=== PATIENT | female | born 1980 | race Caucasian/White ===

== ENCOUNTER 2021-05-27 08:53 | Observation (INO) | payer BC, OTHER ==
[~2021-05-27 08:53] MED LIST: Dexamethasone 4 MG/ML 5 ML MDV ONE; Ketorolac 30 MG/ML SDV ONE; Lactated Ringers 1,000 ML IV SCH; Lidocaine 1% 4 ML ONE; Lidocaine 1%/Sod Bicarbonate in NS 8.4% 1 ML Syringe IDERM PRN; Midazolam 1 MG/ML 2 ML SDV ONE; Ondansetron 4 MG/2 ML SDV ONE; Propofol 200 MG/20 ML SDV ONE; Rocuronium 50 MG/5 ML Vial ONE; Scopolamine 1.5 MG Transdermal Patch TRDERM PRN; Sodium Chloride 0.9% 10 ML Syringe FLUSH PRN; fentaNYL 250 MCG/5 ML SDV ONE
[2021-05-27] MEDS ORDERED: Scopolamine 1.5 MG Transdermal Patch TRDERM ONE (09:19)
[2021-05-27] MEDS ORDERED: diphenhydrAMINE 50 MG/ML SDV IVPUSH PRN (09:19)
[2021-05-27] MEDS ORDERED: Ondansetron 4 MG/2 ML SDV IVPUSH PRN (09:19)
[2021-05-27] MEDS ORDERED: fentaNYL 100 MCG/2 ML SDV IVPUSH PRN (09:20)
[2021-05-27] MEDS ORDERED: HYDROmorphone 0.5 MG/0.5 ML Syringe IVPUSH PRN (09:20)
--- NOTE | 2021-05-27 09:28 | PCM.PREANE ---
Preanesthetic Assessment - Procedure Proposed Procedure: Laparscopic Hiatal hernia repair - Anesthesia/Transfusion/Family Hx Anesthesia History: Prior Anesthesia Reaction Type of Anesthesia Reaction: Excessive Nausea/Vomiting Family History of Anesthesia Reaction: No Transfusion History: No Prior Transfusion(s) Intubation History: Unknown - Review of Systems General: No Symptoms Pulmonary: No Symptoms (history of bronchitis - does not use albuterol inhaler regularly only once a year ) Cardiovascular: No Symptoms Gastrointestinal: Other (GERD history when no on medicaitons ) Neurological: No Symptoms Other: Reports: None, Depression, Anxiety - Physical Assessment NPO Status Date: 05/26/21 NPO Status Time: 20:30 Height: 1.5 m Weight: 21.137 kg ASA Class: 2 Mental Status: Alert & Oriented x3 Airway Class: Mallampati = 1 Dentition: Reports: Dentures Thyro-Mental Finger Breadths: 3 Mouth Opening Finger Breadths: 5 ROM/Head Extension: Full Lungs: Clear to Auscultation, Normal Respiratory Effort Cardiovascular: Regular Rate, Regular Rhythm - Lab Values: Laboratory Last Values Urine HCG, Qual Negative (NEGATIVE) 05/27/21 08:53 - Allergies Allergies/Adverse Reactions: Allergies Allergy/AdvReac Type Severity Reaction Status Date / Time No Known Allergies Allergy Verified 05/24/21 08:42 - Blood Blood Available: No - Anesthesia Plan Pre-Op Medication Ordered: None - Acknowledgements Anesthesia Type Planned: General Anesthesia Pt an Appropriate Candidate for the Planned Anesthesia: Yes Alternatives and Risks of Anesthesia Discussed w Pt/Guardian: Yes Pt/Guardian Understands and Agrees with Anesthesia Plan: Yes PreAnesthesia Questionnaire - Past Health History Medical/Surgical History: Denies Medical/Surgical History Other HEENT History: wears eyeglasses, has upper/lower dentures. Gastrointestinal History: Reports: Colon Polyp, Gastritis, Helicobacter Pylori, Hiatal Hernia Psychiatric History: Reports: Eating Disorders - Past Surgical History HEENT Surgical History: Reports: Naso-Sinus Surgery GI Surgical History: Reports: Colonoscopy, EGD - SUBSTANCE USE Tobacco Use Status *Q: Former Tobacco User Recreational Drug Use History: No - HOME MEDS Home Medications: Home Meds Albuterol [Ventolin HFA] 1 puff INH ASDIRECTED PRN 05/24/21 [History] Famotidine [Pepcid] 20 mg PO BEDTIME 05/24/21 [History] Inulin/Chromium Picolinate [Fiber Gummies] 1 tab PO DAILY 05/24/21 [History] L.acidoph,Paracasei, B.lactis [Probiotic] 2 cap PO DAILY 05/24/21 [History] Omeprazole Magnesium [Prilosec Otc] 40 mg PO DAILY 05/24/21 [History] Sucralfate [Carafate] 1 gm PO QID 05/24/21 [History] polyethylene glycoL 3350 [MiraLAX] 17 gm PO ASDIRECTED PRN 05/24/21 [History] - CURRENT (IN HOUSE) MEDS Current Meds: Current Medications Diphenhydramine HCl (Diphenhydramine 50 Mg/Ml Sdv) 25 mg IVPUSH Q6H PRN PRN Reason: pruritis Fentanyl (Fentanyl 100 Mcg/2 Ml Sdv) 50 mcg IVPUSH Q5M PRN PRN Reason: Pain Hydromorphone HCl (Hydromorphone 0.5 Mg/0.5 Ml Syringe) 0.5 mg IVPUSH Q10M PRN PRN Reason: Pain (severe 7-10) Lactated Ringer's (Ringers, Lactated) 1,000 mls @ 125 mls/hr IV ASDIRECTED COCO Stop: 05/27/21 23:00 Lidocaine/Sodium Bicarbonate (Lidocaine 1%/Sod Bicarbonate In Ns 8.4% 1 Ml Syringe) 0.25 ml IDERM ONETIME PRN PRN Reason: Prior to IV Start Stop: 05/27/21 18:00 Ondansetron HCl (Ondansetron 4 Mg/2 Ml Sdv) 4 mg IVPUSH ONETIME PRN PRN Reason: Nausea/Vomiting Scopolamine (Scopolamine 1.5 Mg Transdermal Patch) 1.5 mg TRDERM Q72H PRN PRN Reason: Nausea Stop: 05/27/21 23:00 Scopolamine (Scopolamine 1.5 Mg Transdermal Patch) 1.5 mg TRDERM ONETIME ONE Stop: 05/27/21 09:20 Sodium Chloride (Sodium Chloride 0.9% 10 Ml Syringe) 10 ml FLUSH ASDIRECTED PRN PRN Reason: Keep Vein Open Stop: 05/27/21 18:00 Discontinued Medications Dexamethasone (Dexamethasone 4 Mg/Ml 5 Ml Mdv) Confirm Administered Dose 20 mg .ROUTE .STK-MED ONE Stop: 05/27/21 08:02 Fentanyl (Fentanyl 250 Mcg/5 Ml Sdv) Confirm Administered Dose 250 mcg .ROUTE .STK-MED ONE Stop: 05/27/21 08:03 Lidocaine HCl (Xylocaine-Mpf 1%) Confirm Administered Dose 4 mls @ as directed .ROUTE .[facility]-MED ONE Stop: 05/27/21 08:02 Ketorolac Tromethamine (Ketorolac 30 Mg/Ml Sdv) Confirm Administered Dose 30 mg .ROUTE .[facility] [place]-MED ONE Stop: 05/27/21 08:02 Midazolam HCl (Midazolam 1 Mg/Ml 2 Ml Sdv) Confirm Administered Dose 2 mg .ROUTE .[facility] [place]-MED ONE Stop: 05/27/21 07:59 Ondansetron HCl (Ondansetron 4 Mg/2 Ml Sdv) Confirm Administered Dose 4 mg .ROUTE .[facility] [place]-MED ONE Stop: 05/27/21 08:00 Propofol (Propofol 200 Mg/20 Ml Sdv) Confirm Administered Dose 200 mg .ROUTE .[facility] [place]-MED ONE Stop: 05/27/21 07:59 Rocuronium [place] (Rocuronium 50 Mg/5 Ml Vial) Confirm Administered Dose 50 mg .ROUTE .[facility]-MED ONE Stop: 05/27/21 08:02
[2021-05-27] MEDS ORDERED: ceFAZolin 1 GM Vial ONE ×3 (10:25→14:16)
[2021-05-27] MEDS: Bupivacaine 0.5%/EPINEPHrine 1:200,000 50 ML MDV ONE ×2 (10:43→11:05)
[2021-05-27] MEDS ORDERED: HYDROmorphone 0.5 MG/0.5 ML Syringe ONE ×3 (11:19→14:08)
[2021-05-27] MEDS ORDERED: Rocuronium 50 MG/5 ML Vial ONE (11:20)
[2021-05-27] MEDS ORDERED: Ketamine 500 mg/10 ML MDV ONE (11:36)
[2021-05-27] MEDS ORDERED: Lactated Ringers 1,000 ML ONE ×3 (13:08→15:04)
[2021-05-27] MEDS ORDERED: Ondansetron 4 MG/2 ML SDV ONE (14:18)
[2021-05-27] MEDS ORDERED: Glycopyrrolate 0.2 MG/ML SDV ONE ×2 (15:54)
[2021-05-27] MEDS ORDERED: Ketorolac 30 MG/ML SDV IM PRN (16:39)
[2021-05-27] MEDS ORDERED: Ondansetron 4 MG/2 ML SDV IV PRN (16:39)
--- NOTE | 2021-05-27 16:40 | PCM.POSTAN ---
POST ANESTHESIA ASSESSMENT - MENTAL STATUS Mental Status: Somnolent - VITAL SIGNS Vital Signs: Last Vital Signs Temp 97.9 F 05/27/21 09:00 Pulse 82 05/27/21 09:00 Resp 16 05/27/21 09:00 BP 120/80 05/27/21 09:00 Pulse Ox 100 05/27/21 09:00 1627 122/81 92 96% 9 97.2 - RESPIRATORY Respiratory Status: Respiratory Rate WNL, Airway Patent, O2 Saturation Stable, Supplemental Oxygen - CARDIOVASCULAR CV Status: Pulse Rate WNL, Blood Pressure Stable - GASTROINTESTINAL GI Status: No Symptoms - PAIN Pain Score: 0 (asleep) - POST OP HYDRATION Hydration Status: Adequate & Stable
[2021-05-27] MEDS ORDERED: Piperacillin/Tazobactam 4.5 GM in Sodium Chloride 0.9% 100 ML IV ONE (17:00)
[2021-05-27] MEDS: Lactated Ringers 1,000 ML IV SCH (18:39)
[2021-05-27] MEDS: Potassium Chloride 10 MEQ in Premix Bag 1 BAG IV SCH (18:55)
[2021-05-27] MEDS ORDERED: Fluconazole/Normal Saline 200 MG in Premix Bag 1 BAG IV SCH (19:00)
[2021-05-27] MEDS: Pantoprazole 40 MG Vial IV SCH (20:09)
[2021-05-27] MEDS: HYDROmorphone 0.5 MG/0.5 ML Syringe IVPUSH PRN (20:25)
[2021-05-28] MEDS: Piperacillin/Tazobactam 4.5 GM in Sodium Chloride 0.9% 100 ML IV SCH ×2 (00:52→09:05)
[2021-05-28] MEDS: HYDROmorphone 0.5 MG/0.5 ML Syringe IVPUSH PRN ×2 (00:56→09:05)
[2021-05-28] MEDS: Lactated Ringers 1,000 ML IV SCH ×3 (01:10→18:32)
[2021-05-28] MEDS ORDERED: Ketorolac 15 MG/ML SDV IVPUSH PRN (07:29)
--- NOTE | 2021-05-28 07:35 | PCM48HPAN ---
Post Anesthesia Note - EVALUATION WITHIN 48HRS OF ANESTHETIC Vital Signs in Normal Range: Yes Patient Participated in Evaluation: Yes Respiratory Function Stable: Yes Airway Patent: Yes Cardiovascular Function Stable: Yes Hydration Status Stable: Yes Pain Control Satisfactory: Yes Nausea and Vomiting Control Satisfactory: Yes Mental Status Recovered: Yes Vital Signs: Last Vital Signs Temp 36.7 C 05/28/21 04:54 Pulse 66 05/28/21 04:54 Resp 16 05/28/21 04:54 BP 109/70 05/28/21 04:54 Pulse Ox 100 05/28/21 06:20 - COMMENTS/OBSERVATIONS Free Text/Narrative:: no anesthesia complications noted
[2021-05-28] MEDS ORDERED: Ketorolac 15 MG/ML SDV IVPUSH SCH (08:00)
[2021-05-28] MEDS ORDERED: Magnesium Sulfate/Water 4 GM in Premix Bag 1 BAG IV ONE (09:00)
[2021-05-28] MEDS: Enoxaparin 30 MG/0.3 ML Syringe SUBCUT SCH (09:04)
[2021-05-28] MEDS: Pantoprazole 40 MG Vial IV SCH ×2 (09:05→21:57)
[2021-05-28] MEDS ORDERED: Barium Sulfate 60% w/v Susp 355 ML Bottle PO ONE (11:54)
[2021-05-28] MEDS ORDERED: Diatrizoate Meglumine/Diatrizoate Sodium 37% 120 ML Bottle PO ONE (11:54)
--- NOTE | 2021-05-28 12:10 | PCM.PN ---
- General Info Date of Service: 05/28/21 Admission Dx/Problem (Free Text): Hiatal hernia repair Subjective Update: still has pain, incisional but no other issues. tolerating ice chips Functional Status: Reports: Tolerating Diet, Ambulating, Urinating - Review of Systems General: Reports: No Symptoms HEENT: Reports: No Symptoms Pulmonary: Reports: No Symptoms Cardiovascular: Reports: No Symptoms Gastrointestinal: Reports: Abdominal Pain (due to surgery) Genitourinary: Reports: No Symptoms Musculoskeletal: Reports: No Symptoms Skin: Reports: No Symptoms - Patient Data Vitals - Most Recent: Last Vital Signs Temp 97.9 F 05/28/21 07:38 Pulse 85 05/28/21 07:38 Resp 20 05/28/21 07:38 BP 90/64 05/28/21 07:38 Pulse Ox 97 05/28/21 07:47 Weight - Most Recent: 46.539 kg I&O - Last 24 Hours: Intake & Output 05/27/21 05/28/21 05/28/21 22:59 06:59 14:59 Intake Total 520 1452 Output Total 100 Balance 520 1352 Lab Results Last 24 Hours: Laboratory Results - last 24 hr 05/27/21 05/28/21 05/28/21 Range/Units 16:45 04:58 04:58 WBC 15.19 H (3.98-10.04) K/mm3 RBC 3.80 L (3.98-5.22) M/mm3 Hgb 11.6 D (11.2-15.7) gm/dl Hct 34.6 (34.1-44.9) % MCV 91.1 (79.4-94.8) fl MCH 30.5 (25.6-32.2) pg MCHC 33.5 (32.2-35.5) g/dl RDW Std Deviation 43.6 (36.4-46.3) fL Plt Count 266 D (182-369) K/mm3 MPV 9.8 (9.4-12.3) fl Neut % (Auto) 82.1 H (34.0-71.1) % Lymph % (Auto) 10.8 L (19.3-51.7) % Guthrie % (Auto) 7.0 (4.7-12.5) % Eos % (Auto) 0 L (0.7-5.8) Baso % (Auto) 0.1 (0.1-1.2) % Neut # (Auto) 12.47 H (1.56-6.13) K/mm3 Lymph # (Auto) 1.64 (1.18-3.74) K/mm3 [place]rie # (Auto) 1.07 H (0.24-0.36) K/mm3 Eos # (Auto) 0.00 L (0.04-0.36) K/mm3 Baso # (Auto) 0.01 (0.01-0.08) K/mm3 Sodium 140 (136-145) mEq/L Potassium 5.0 D 3.9 (3.5-5.1) mEq/L Chloride 105 (98-107) mEq/L Carbon Dioxide 25 (21-32) mEq/L Anion Gap 13.9 (5-15) BUN 7 (7-18) mg/dL Creatinine 0.9 (0.55-1.02) mg/dL Est Cr Clr Drug Dosing 57.89 mL/min Estimated GFR (MDRD) > 60 (>60) mL/min BUN/Creatinine Ratio 7.8 L (14-18) Glucose 103 H (70-99) mg/dL Calcium 7.7 L (8.5-10.1) mg/dL Phosphorus 3.3 (2.6-4.7) mg/dL Magnesium 1.3 L (1.8-2.4) mg/dL Med Orders - Current: Current Medications Enoxaparin Sodium (Enoxaparin 30 Mg/0.3 Ml Syringe) 30 mg SUBCUT DAILY [facility] Last Admin: 05/28/21 09:04 Dose: 30 mg Documented by: Hydromorphone HCl (Hydromorphone 0.5 Mg/0.5 Ml Syringe) 0.5 mg IVPUSH Q2H PRN PRN Reason: Pain (severe 7-10) Last Admin: 05/28/21 09:05 Dose: 0.5 mg Documented by: Piperacillin Sod/Tazobactam (Sod 4.5 gm/ Sodium Chloride) 100 mls @ 25 mls/hr IV Q8H [facility] Last Admin: 05/28/21 09:05 Dose: 25 mls/hr Documented by: Fluconazole/Sodium Chloride (200 mg/ Premix) 100 mls @ 100 mls/hr IV Q24H [facility] Last Admin: 05/27/21 20:09 Dose: 100 mls/hr Documented by: Lactated Ringer's (Ringers, Lactated) 1,000 mls @ 125 mls/hr IV ASDIRECTED [facility] Last Admin: 05/28/21 09:07 Dose: 125 mls/hr Documented by: Magnesium Sulfate 4 gm/ Premix 50 mls @ 12.5 mls/hr IV ONETIME ONE Stop: 05/28/21 12:59 Last Admin: 05/28/21 09:04 Dose: 12.5 mls/hr Documented by: Ketorolac Tromethamine (Ketorolac 15 Mg/Ml Sdv) 15 mg IVPUSH Q6H PRN PRN Reason: Pain Last Admin: 05/28/21 11:37 Dose: 15 mg Documented by: Miscellaneous Information (Remove Patch) 0 ea TRDERM ONETIME ONE Stop: 05/30/21 09:01 Ondansetron HCl (Ondansetron 4 Mg/2 Ml Sdv) 4 mg IV Q4H PRN PRN Reason: Nausea/Vomiting Pantoprazole Sodium (Pantoprazole 40 Mg Vial) 40 mg IV Q12HR [facility] Last Admin: 05/28/21 09:05 Dose: 40 mg Documented by: Discontinued Medications Barium Sulfate (Barium Sulfate 60% W/V Susp 355 Ml Bottle) 355 ml PO PREPRO ONE Stop: 05/28/21 11:55 Bupivacaine HCl/Epinephrine Bitart (Bupivacaine 0.5%/Epinephrine 1:200,000 50 Ml Mdv) Confirm Administered Dose 50 ml .ROUTE .STK-MED ONE Stop: 05/27/21 09:38 Last Admin: 05/27/21 10:43 Dose: 40 ml Documented by: Cefazolin Sodium (Cefazolin 1 Gm Vial) Confirm Administered Dose 2 gm .ROUTE .STK-MED ONE Stop: 05/27/21 10:26 Cefazolin Sodium (Cefazolin 1 Gm Vial) Confirm Administered Dose 2 gm .ROUTE .STK-MED ONE Stop: 05/27/21 14:16 Cefazolin Sodium (Cefazolin 1 Gm Vial) Confirm Administered Dose 2 gm .ROUTE .STK-MED ONE Stop: 05/27/21 14:17 Dexamethasone (Dexamethasone 4 Mg/Ml 5 Ml Mdv) Confirm Administered Dose 20 mg .ROUTE .STK-MED ONE Stop: 05/27/21 08:02 Diatrizoate Meglum/Diatrizoate Sod (Diatrizoate Meglumine/Diatrizoate Sodium 37% 120 Ml Bottle) 360 ml PO ONETIME ONE Stop: 05/28/21 11:55 Diphenhydramine HCl (Diphenhydramine 50 Mg/Ml Sdv) 25 mg IVPUSH Q6H PRN PRN Reason: pruritis Stop: 05/27/21 18:00 Fentanyl (Fentanyl 250 Mcg/5 Ml Sdv) Confirm Administered Dose 250 mcg .ROUTE .STK-MED ONE Stop: 05/27/21 08:03 Fentanyl (Fentanyl 100 Mcg/2 Ml Sdv) 50 mcg IVPUSH Q5M PRN PRN Reason: Pain Stop: 05/27/21 18:00 Glycopyrrolate (Glycopyrrolate 0.2 Mg/Ml Sdv) Confirm Administered Dose 0.2 mg .ROUTE .STK-MED ONE Stop: 05/27/21 15:55 Glycopyrrolate (Glycopyrrolate 0.2 Mg/Ml Sdv) Confirm Administered Dose 0.2 mg .ROUTE .STK-MED ONE Stop: 05/27/21 15:55 Hydromorphone HCl (Hydromorphone 0.5 Mg/0.5 Ml Syringe) 0.5 mg IVPUSH Q10M PRN PRN Reason: Pain (severe 7-10) Stop: 05/27/21 18:00 Hydromorphone HCl (Hydromorphone 0.5 Mg/0.5 Ml Syringe) Confirm Administered Dose 0.5 mg .ROUTE .STK-MED ONE Stop: 05/27/21 11:20 Hydromorphone HCl (Hydromorphone 0.5 Mg/0.5 Ml Syringe) Confirm Administered Dose 0.5 mg .ROUTE .STK-MED ONE Stop: 05/27/21 13:02 Hydromorphone HCl (Hydromorphone 0.5 Mg/0.5 Ml Syringe) Confirm Administered Dose 0.5 mg .ROUTE .STK-MED ONE Stop: 05/27/21 14:09 Lactated Ringer's (Ringers, Lactated) 1,000 mls @ 125 mls/hr IV ASDIRECTED COCO Stop: 05/27/21 23:00 Last Admin: 05/27/21 09:05 Dose: 125 mls/hr Documented by: Lidocaine HCl (Xylocaine-Mpf 1%) Confirm Administered Dose 4 mls @ as directed .ROUTE .STK-MED ONE Stop: 05/27/21 08:02 Potassium Chloride 10 meq/ (Premix) 100 mls @ 100 mls/hr IV Q1H COCO Stop: 05/27/21 14:59 Last Admin: 05/27/21 18:55 Dose: Not Given Documented by: Lactated Ringer's (Ringers, Lactated) Confirm Administered Dose 1,000 mls @ as directed .ROUTE .STK-MED ONE Stop: 05/27/21 13:09 Lactated Ringer's (Ringers, Lactated) Confirm Administered Dose 1,000 mls @ as directed .ROUTE .STK-MED ONE Stop: 05/27/21 13:10 Lactated Ringer's (Ringers, Lactated) Confirm Administered Dose 1,000 mls @ as directed .ROUTE .STK-MED ONE Stop: 05/27/21 15:05 Piperacillin Sod/Tazobactam (Sod 4.5 gm/ Sodium Chloride) 100 mls @ 200 mls/hr IV ONETIME ONE Stop: 05/27/21 17:29 Last Admin: 05/27/21 18:41 Dose: 200 mls/hr Documented by: Ketamine HCl (Ketamine 500 Mg/10 Ml Mdv) Confirm Administered Dose 500 mg .ROUTE .STK-MED ONE Stop: 05/27/21 11:37 Ketorolac Tromethamine (Ketorolac 30 Mg/Ml Sdv) Confirm Administered Dose 30 mg .ROUTE .STK-MED ONE Stop: 05/27/21 08:02 Ketorolac Tromethamine (Ketorolac 30 Mg/Ml Sdv) 30 mg IM Q6H PRN PRN Reason: Pain (moderate 4-6) Lidocaine/Sodium Bicarbonate (Lidocaine 1%/Sod Bicarbonate In Ns 8.4% 1 Ml Syringe) 0.25 ml IDERM ONETIME PRN PRN Reason: Prior to IV Start Stop: 05/27/21 18:00 Last Admin: 05/27/21 09:05 Dose: 0.25 ml Documented by: Midazolam HCl (Midazolam 1 Mg/Ml 2 Ml Sdv) Confirm Administered Dose 2 mg .ROUTE .STK-MED ONE Stop: 05/27/21 07:59 Neostigmine Methylsulfate (Neostigmine Methylsulfate 5 Mg/5 Ml Syringe) Confirm Administered Dose 5 mg .ROUTE .STK-MED ONE Stop: 05/27/21 15:55 Ondansetron HCl (Ondansetron 4 Mg/2 Ml Sdv) Confirm Administered Dose 4 mg .ROUTE .STK-MED ONE Stop: 05/27/21 08:00 Ondansetron HCl (Ondansetron 4 Mg/2 Ml Sdv) 4 mg IVPUSH ONETIME PRN PRN Reason: Nausea/Vomiting Stop: 05/27/21 18:00 Ondansetron HCl (Ondansetron 4 Mg/2 Ml Sdv) Confirm Administered Dose 4 mg .ROUTE .STK-MED ONE Stop: 05/27/21 14:19 Propofol (Propofol 200 Mg/20 Ml Sdv) Confirm Administered Dose 200 mg .ROUTE .STK-MED ONE Stop: 05/27/21 07:59 Rocuronium [place] (Rocuronium 50 Mg/5 Ml Vial) Confirm Administered Dose 50 mg .ROUTE .STK-MED ONE Stop: 05/27/21 08:02 Rocuronium [place] (Rocuronium 50 Mg/5 Ml Vial) Confirm Administered Dose 50 mg .ROUTE .STK-MED ONE Stop: 05/27/21 11:21 Scopolamine (Scopolamine 1.5 Mg Transdermal Patch) 1.5 mg TRDERM Q72H PRN PRN Reason: Nausea Stop: 05/27/21 23:00 Scopolamine (Scopolamine 1.5 Mg Transdermal Patch) 1.5 mg TRDERM ONETIME ONE Stop: 05/27/21 09:20 Last Admin: 05/27/21 09:33 Dose: 1.5 mg Documented by: Sodium Chloride (Sodium Chloride 0.9% 10 Ml Syringe) 10 ml FLUSH ASDIRECTED PRN PRN Reason: Keep Vein Open Stop: 05/27/21 18:00 - Exam General: Alert, Oriented, Cooperative Lungs: Clear to Auscultation, Normal Respiratory Effort Cardiovascular: Regular Rate, Regular Rhythm, No Murmurs GI/Abdominal Exam: Soft, Tender (appropriately) - Patient Data Lab Results Last 24 hrs: Laboratory Results - last 24 hr 05/27/21 05/28/21 05/28/21 Range/Units 16:45 04:58 04:58 WBC 15.19 H (3.98-10.04) K/mm3 RBC 3.80 L (3.98-5.22) M/mm3 Hgb 11.6 D (11.2-15.7) gm/dl Hct 34.6 (34.1-44.9) % MCV 91.1 (79.4-94.8) fl MCH 30.5 (25.6-32.2) pg MCHC 33.5 (32.2-35.5) g/dl RDW Std Deviation 43.6 (36.4-46.3) fL Plt Count 266 D (182-369) K/mm3 MPV 9.8 (9.4-12.3) fl Neut % (Auto) 82.1 H (34.0-71.1) % Lymph % (Auto) 10.8 L (19.3-51.7) % [place]uthrie % (Auto) 7.0 (4.7-12.5) % Eos % (Auto) 0 L (0.7-5.8) Baso % (Auto) 0.1 (0.1-1.2) % Neut # (Auto) 12.47 H (1.56-6.13) K/mm3 Lymph # (Auto) 1.64 (1.18-3.74) K/mm3 [place]rie # (Auto) 1.07 H (0.24-0.36) K/mm3 Eos # (Auto) 0.00 L (0.04-0.36) K/mm3 Baso # (Auto) 0.01 (0.01-0.08) K/mm3 Sodium 140 (136-145) mEq/L Potassium 5.0 D 3.9 (3.5-5.1) mEq/L Chloride 105 (98-107) mEq/L Carbon Dioxide 25 (21-32) mEq/L Anion Gap 13.9 (5-15) BUN 7 (7-18) mg/dL Creatinine 0.9 (0.55-1.02) mg/dL Est Cr Clr Drug Dosing 57.89 mL/min Estimated GFR (MDRD) > 60 (>60) mL/min BUN/Creatinine Ratio 7.8 L (14-18) Glucose 103 H (70-99) mg/dL Calcium 7.7 L (8.5-10.1) mg/dL Phosphorus 3.3 (2.6-4.7) mg/dL Magnesium 1.3 L (1.8-2.4) mg/dL Result Diagrams: 05/28/21 04:58 05/28/21 04:58 Sepsis Event Note - Evaluation Sepsis Screening Result: No Definite Risk - Focused Exam Vital Signs: Vital Signs Temp Pulse Resp BP Pulse Ox Pulse Ox 05/28/21 07:47 97 05/28/21 07:38 97.9 F 85 20 90/64 05/28/21 06:20 100 05/28/21 04:54 98.1 F 66 16 109/70 100 - Problem List Review Problem List Initiated/Reviewed/Updated: No - My Orders Last 24 Hours: My Active Orders 05/27/21 16:39 Up ad Amy [RC] 09,,, Vital Signs [RC] Q4H HYDROmorphone [Dilaudid] 0.5 mg IVPUSH Q2H PRN Ondansetron [Zofran] 4 mg IV Q4H PRN Resuscitation Status Routine 05/27/21 16:41 Intake and Output [RC] 04,16 05/27/21 16:42 Sequential Compression Device [OM.PC] Per Unit Routine 05/27/21 16:44 Antiembolic Devices [RC] ,05/27/21 16:45 Lactated Ringers [Ringers, Lactated] 1,000 ml IV ASDIRECTED 05/27/21 Dinner Nothing per Oral Now Diet [DIET] 05/27/21 19:00 Fluconazole/Normal Saline [Diflucan in NS 200 MG/100 ML] 200 mg Premix Bag 1 bag IV Q24H 05/27/21 21:00 Pantoprazole [ProTONIX IV] 40 mg IV Q12HR 05/28/21 00:56 Admission Status [Patient Status] [ADT] Routine 05/28/21 01:00 Piperacillin/Tazobactam [Piperacil-Tazobact] 4.5 gm Sodium Chloride 0.9% [Normal Saline] 100 ml IV Q8H 05/28/21 07:29 Ketorolac [Toradol] 15 mg IVPUSH Q6H PRN 05/28/21 09:00 Enoxaparin [Lovenox] 30 mg SUBCUT DAILY Magnesium Sulfate/Water [Magnesium Sulfate in Water 4 GM/50 ML] 4 gm Premix Bag 1 bag IV ONETIME 05/28/21 10:53 Esophagus [CR] Routine 05/29/21 05:11 BASIC METABOLIC PANEL,BMP [CHEM] AM CBC WITH AUTO DIFF [HEME] AM MAGNESIUM [CHEM] AM PHOSPHORUS [CHEM] AM 05/30/21 05:11 BASIC METABOLIC PANEL,BMP [CHEM] AM CBC WITH AUTO DIFF [HEME] AM MAGNESIUM [CHEM] AM PHOSPHORUS [CHEM] AM - Assessment Assessment:: POD1 s/p hiatal hernia repair and Katya Fundoplication. Had a small esophageal mucosal tear due to bougie placement. EGD with clips placed. - Plan Plan:: - Esophagram completed this AM. no leak. Katya intact - will start CLD. - All meds need to be crushed - Ambulate - Incentive spirometer
--- NOTE | 2021-05-28 12:11 | CR ---
Esophagram Technique: Gastrografin contrast was ingested with multiple fluoroscopic images obtained of the esophagus. Comparison: Prior esophagram study of 03/13/21. There is narrowing of the distal esophagus. There is a slightly slow transit of contrast through this area of narrowing. The appearance of this narrowing is most likely due to previous Katya fundoplication which is an interval change from previous study. No aspiration is seen. Contrast is noted on delayed images within the stomach. Air is seen within the subcutaneous tissues at the base of the neck presumably due to prior surgery. Impression: 1. Mild delay of emptying of the esophagus into the stomach with narrowing of the distal esophagus. These findings are felt to relate to recent Katya fundoplication. 2. No findings of leakage of contrast is seen. 3. Air within the subcutaneous soft tissues within the base of the neck presumably due to previous surgery. Diagnostic code #2
[2021-05-28] MEDS ORDERED: Albuterol 6.7 GM Inhaler INH PRN (12:19)
[2021-05-28] MEDS: Acetaminophen 325 MG Tab PO SCH ×2 (14:13→18:33)
[2021-05-28] MEDS: oxyCODONE 5 MG Tab PO PRN ×2 (16:32→23:01)
[2021-05-29] MEDS: Acetaminophen 325 MG Tab PO SCH ×4 (01:14→19:53)
[2021-05-29] MEDS ORDERED: Potassium Phosphates 30 MMOLE in Sodium Chloride 0.9% 500 ML IV SCH ×4 (08:00)
[2021-05-29] MEDS: Pantoprazole 40 MG Vial IV SCH (08:30)
[2021-05-29] MEDS: Enoxaparin 30 MG/0.3 ML Syringe SUBCUT SCH (08:30)
[2021-05-29] MEDS ORDERED: Phosphorus #1 250 MG Tab PO SCH (09:00)
[2021-05-29 11:52] VITALS: PULSE 55
--- NOTE | 2021-05-29 11:54 | OR ---
DATE OF OPERATION: 05/27/2021 SURGEON: Jorge Coley MD PREOPERATIVE DIAGNOSIS: Symptomatic paraesophageal hiatal hernia. POSTOPERATIVE DIAGNOSIS: Symptomatic paraesophageal hiatal hernia. OPERATION PERFORMED: 1. Laparoscopic hiatal hernia repair. 2. Katya fundoplication. 3. Intraoperative esophagogastroduodenoscopy with repair of proximal esophageal mucosal tear. ANESTHESIA: General endotracheal with local anesthetic consisting of 0.5% Marcaine with epinephrine. ESTIMATED BLOOD LOSS: 50 mL. FINDINGS: Large paraesophageal hiatal hernia containing part of the stomach (Type III). COMPLICATIONS: Proximal esophageal mucosal tear due to bougie placement. NEED FOR ASSISTANCE: Skilled assistance of our nurse practitioner, Mere Aems CNP was needed in this case. She helped with patient positioning, holding retractors and camera during the case and incision closure at the end of the case. INDICATION AND CONSENT: Ms. Hernandez is a 41-year-old female who has been having epigastric and left upper quadrant pain for many years. This has been getting worse for the patient, it actually wakes her up at night and causing discomfort during the day. The patient saw me after having had an EGD noting a 7 cm hiatal hernia. Due to her symptoms, I was convinced that her symptoms are related to the hiatal hernia, therefore I offered the patient repair. Prior to the repair, we performed several studies including esophageal motility study and pH monitoring. pH monitoring was significant for increased reflux in recumbent position, motility study was also normal. Due to these findings and her symptoms, I offered the patient repair of her hiatal hernia and Katya fundoplication. We discussed risks, benefits and alternatives, and informed consent was obtained. DESCRIPTION OF PROCEDURE: The patient was taken to the procedure room and placed in supine position. General anesthesia was induced, then position was changed to slight lithotomy. Ryan was placed. Preop antibiotics were given and the abdomen was prepped and draped in the usual sterile fashion. Time-out was performed prior to the start of the procedure. Began the procedure by placing a Veress needle in the left upper quadrant. Abdomen was insufflated to 15 mmHg. Then the 12 mm port was placed in the position just above and to the right and above the umbilicus. This was done with direct visualization of the laparoscope. Upon entry into the abdomen, there was no injury to the Veress needle insertion or trocar insertion. Two additional 5 mm ports were placed, one in the right upper quadrant working port and another one in the left lateral abdomen and the medical record assistant port, then another 12 mm port was placed in the left upper quadrant as a working port. A subxiphoid incision was made for placement of Afsaneh liver retractor. After trying to place Afsaneh retractor, the patient had enlarged liver and a small stature, therefore the Afsaneh retractor was unable to sit well in the abdomen due to the patient's small size. Therefore, we used another liver retractor through a 5 mm port placed in the right upper quadrant. Once all ports and liver retractor were placed, we began the procedure after placing the patient into steep reverse Trendelenburg position. We began by doing a quick survey. We saw that at least one-third of the stomach was in the chest with a large paraesophageal hiatal hernia. Using hook cautery, the peritoneum around the brady was opened and then the hernia sac was detached from the pleural and surrounding tissues anterior and lateral mediastinum, mostly with blunt resection and judicious use of LigaSure Impact bipolar cautery. There were extensive adhesions in the posterior aspect of the brady and these were taken down carefully exposing crura crossing. Any bleeding was stopped either with cautery or with clips. Once the hernia sac was released from the right and anteriorly as well as the left side, we went and took down the short gastrics and released the fundus. Then at this point, we were able to make a retroesophageal window and place the [place] and retract the esophagus anteriorly and inferiorly and we completed the posterior dissection of the esophagus and the stomach. Once this was done, the hernia sac was trimmed, so as to allow us to visualize well the esophagus. The patient had a good amount of intraabdominal esophagus around 5 cm, therefore this was not a problem at all. Next, we began to repair the hiatal hernia. This was repaired using 0 Ethibond stitches in a [id number] fashion using Endostitch. The hernia was large, therefore 4 stitches were placed. Once this was done, the esophagus appeared to be resting well. Then a 56-Wallisian bougie was placed into the esophagus and a 360 Katya fundoplication was created in the normal fashion using 0 Ethibond stitches to complete this part of the procedure. Once this was done, the stomach appeared to be lying well and the fundoplication appeared well. At this point, I decided to do intraoperative esophagogastroduodenoscopy. The scope was placed. Right upon entering the esophagus, I noted that it was probably in the false submucosal tract and retracted the scope and went into the lumen of the esophagus and went all the way to the duodenum. Duodenum was normal. Stomach had some inflammation in the antrum. On retroflexion, the wrap appeared to be in good position. The wrap was at the GE junction. The scope was taken to the proximal esophagus to visualize the area of the false tract and noted that there was 2 cm mucosal tear at 15 to 17 cm from the incisors. This was clipped with 3 clips and these 3 clips appeared to be adequate. There were no other injuries to the esophagus that were noted. EGD was concluded. At this point, the abdomen was irrigated and suctioned. The 12 mm port-sites were closed in 2 layers. The fascia was closed with 0 Vicryl stitches with Alvarado-Vladimir device and the skin at all incision sites were closed at with 4-0 Monocryl. At this point, we now concluded the procedure. The patient was awoken and taken to the PACU for recovery. Due to the apparent mucosal tear likely from the bougie placement, we will admit the patient for observation with prophylactic antibiotics. The patient to be kept n.p.o. until noted that the patient is doing fine. CAMILO /[id number] TERRIE
--- NOTE | 2021-05-29 11:58 | PCM.PN ---
- General Info Date of Service: 05/29/21 Admission Dx/Problem (Free Text): Hiatal hernia repair Subjective Update: Tolerated clears fairly well. pain is better. ambulated, urinating Functional Status: Reports: Pain Controlled, Tolerating Diet, Ambulating - Review of Systems General: Reports: No Symptoms HEENT: Reports: No Symptoms Pulmonary: Reports: No Symptoms Cardiovascular: Reports: No Symptoms Gastrointestinal: Reports: Abdominal Pain (post op) Genitourinary: Reports: No Symptoms Musculoskeletal: Reports: No Symptoms - Patient Data Vitals - Most Recent: Last Vital Signs Temp 97.7 F 05/29/21 11:27 Pulse 55 L 05/29/21 11:27 Resp 16 05/29/21 11:27 BP 118/72 05/29/21 11:27 Pulse Ox 99 05/29/21 11:27 Weight - Most Recent: 48.262 kg I&O - Last 24 Hours: Intake & Output 05/28/21 05/29/21 05/29/21 22:59 06:59 14:59 Intake Total 2170 882 Output Total 425 800 Balance 1745 82 Lab Results Last 24 Hours: Laboratory Results - last 24 hr 05/29/21 05/29/21 Range/Units 05:11 05:11 WBC 6.12 (3.98-10.04) K/mm3 RBC 3.27 L (3.98-5.22) M/mm3 Hgb 10.0 L D (11.2-15.7) gm/dl Hct 30.6 L (34.1-44.9) % MCV 93.6 (79.4-94.8) fl MCH 30.6 (25.6-32.2) pg MCHC 32.7 (32.2-35.5) g/dl RDW Std Deviation 45.3 (36.4-46.3) fL Plt Count 221 (182-369) K/mm3 MPV 10.1 (9.4-12.3) fl Neut % (Auto) 64.5 (34.0-71.1) % Lymph % (Auto) 27.6 (19.3-51.7) % [place] % (Auto) 6.5 (4.7-12.5) % Eos % (Auto) 1.1 (0.7-5.8) Baso % (Auto) 0.3 (0.1-1.2) % Neut # (Auto) 3.94 (1.56-6.13) K/mm3 Lymph # (Auto) 1.69 (1.18-3.74) K/mm3 [place] # (Auto) 0.40 H (0.24-0.36) K/mm3 Eos # (Auto) 0.07 (0.04-0.36) K/mm3 Baso # (Auto) 0.02 (0.01-0.08) K/mm3 Sodium 143 (136-145) mEq/L Potassium 3.5 (3.5-5.1) mEq/L Chloride 109 H (98-107) mEq/L Carbon Dioxide 28 (21-32) mEq/L Anion Gap 9.5 (5-15) BUN 5 L (7-18) mg/dL Creatinine 0.7 (0.55-1.02) mg/dL Est Cr Clr Drug Dosing 74.43 mL/min Estimated GFR (MDRD) > 60 (>60) mL/min BUN/Creatinine Ratio 7.1 L (14-18) Glucose 88 (70-99) mg/dL Calcium 7.6 L (8.5-10.1) mg/dL Phosphorus 1.8 L (2.6-4.7) mg/dL Magnesium 2.0 (1.8-2.4) mg/dL Med Orders - Current: Current Medications Acetaminophen (Acetaminophen 325 Mg Tab) 650 mg PO Q6H [facility] Last Admin: 05/29/21 06:17 Dose: 650 mg Documented by: Albuterol (Albuterol 6.7 Gm Inhaler) 0 gm INH Q4H PRN PRN Reason: Shortness of Breath Enoxaparin Sodium (Enoxaparin 30 Mg/0.3 Ml Syringe) 30 mg SUBCUT DAILY COCO Last Admin: 05/29/21 08:30 Dose: 30 mg Documented by: Hydromorphone HCl (Hydromorphone 0.5 Mg/0.5 Ml Syringe) 0.5 mg IVPUSH Q2H PRN PRN Reason: Pain (severe 7-10) Last Admin: 05/28/21 09:05 Dose: 0.5 mg Documented by: Potassium Phosphate 30 mmole/ (Sodium Chloride) 510 mls @ 102 mls/hr IV ONETIME COCO Stop: 05/29/21 12:59 Last Admin: 05/29/21 08:30 Dose: 102 mls/hr Documented by: Miscellaneous Information (Remove Patch) 0 ea TRDERM ONETIME ONE Stop: 05/30/21 09:01 Ondansetron HCl (Ondansetron 4 Mg/2 Ml Sdv) 4 mg IV Q4H PRN PRN Reason: Nausea/Vomiting Oxycodone HCl (Oxycodone 5 Mg Tab) 5 mg PO Q6H PRN PRN Reason: Pain (moderate 4-6) Last Admin: 05/28/21 23:01 Dose: 5 mg Documented by: Pantoprazole Sodium (Pantoprazole 40 Mg Vial) 40 mg IV Q12HR [facility] Last Admin: 05/29/21 08:30 Dose: 40 mg Documented by: Discontinued Medications Barium Sulfate (Barium Sulfate 60% W/V Susp 355 Ml Bottle) 355 ml PO PREPRO ONE Stop: 05/28/21 11:55 Last Admin: 05/28/21 12:20 Dose: 355 ml Documented by: Bupivacaine HCl/Epinephrine Bitart (Bupivacaine 0.5%/Epinephrine 1:200,000 50 Ml Mdv) Confirm Administered Dose 50 ml .ROUTE .STK-MED ONE Stop: 05/27/21 09:38 Last Admin: 05/27/21 10:43 Dose: 40 ml Documented by: Cefazolin Sodium (Cefazolin 1 Gm Vial) Confirm Administered Dose 2 gm .ROUTE .STK-MED ONE Stop: 05/27/21 10:26 Cefazolin Sodium (Cefazolin 1 Gm Vial) Confirm Administered Dose 2 gm .ROUTE .STK-MED ONE Stop: 05/27/21 14:16 Cefazolin Sodium (Cefazolin 1 Gm Vial) Confirm Administered Dose 2 gm .ROUTE .STK-MED ONE Stop: 05/27/21 14:17 Dexamethasone (Dexamethasone 4 Mg/Ml 5 Ml Mdv) Confirm Administered Dose 20 mg .ROUTE .STK-MED ONE Stop: 05/27/21 08:02 Diatrizoate Meglum/Diatrizoate Sod (Diatrizoate Meglumine/Diatrizoate Sodium 37% 120 Ml Bottle) 360 ml PO ONETIME ONE Stop: 05/28/21 11:55 Last Admin: 05/28/21 12:20 Dose: 240 ml Documented by: Diphenhydramine HCl (Diphenhydramine 50 Mg/Ml Sdv) 25 mg IVPUSH Q6H PRN PRN Reason: pruritis Stop: 05/27/21 18:00 Fentanyl (Fentanyl 250 Mcg/5 Ml Sdv) Confirm Administered Dose 250 mcg .ROUTE .STK-MED ONE Stop: 05/27/21 08:03 Fentanyl (Fentanyl 100 Mcg/2 Ml Sdv) 50 mcg IVPUSH Q5M PRN PRN Reason: Pain Stop: 05/27/21 18:00 Glycopyrrolate (Glycopyrrolate 0.2 Mg/Ml Sdv) Confirm Administered Dose 0.2 mg .ROUTE .STK-MED ONE Stop: 05/27/21 15:55 Glycopyrrolate (Glycopyrrolate 0.2 Mg/Ml Sdv) Confirm Administered Dose 0.2 mg .ROUTE .STK-MED ONE Stop: 05/27/21 15:55 Hydromorphone HCl (Hydromorphone 0.5 Mg/0.5 Ml Syringe) 0.5 mg IVPUSH Q10M PRN PRN Reason: Pain (severe 7-10) Stop: 05/27/21 18:00 Hydromorphone HCl (Hydromorphone 0.5 Mg/0.5 Ml Syringe) Confirm Administered Dose 0.5 mg .ROUTE .STK-MED ONE Stop: 05/27/21 11:20 Hydromorphone HCl (Hydromorphone 0.5 Mg/0.5 Ml Syringe) Confirm Administered Dose 0.5 mg .ROUTE .STK-MED ONE Stop: 05/27/21 13:02 Hydromorphone HCl (Hydromorphone 0.5 Mg/0.5 Ml Syringe) Confirm Administered Dose 0.5 mg .ROUTE .STK-MED ONE Stop: 05/27/21 14:09 Lactated Ringer's (Ringers, Lactated) 1,000 mls @ 125 mls/hr IV ASDIRECTED [facility] Stop: 05/27/21 23:00 Last Admin: 05/27/21 09:05 Dose: 125 mls/hr Documented by: Lidocaine HCl (Xylocaine-Mpf 1%) Confirm Administered Dose 4 mls @ as directed .ROUTE .STK-MED ONE Stop: 05/27/21 08:02 Potassium Chloride 10 meq/ (Premix) 100 mls @ 100 mls/hr IV Q1H [facility] Stop: 05/27/21 14:59 Last Admin: 05/27/21 18:55 Dose: Not Given Documented by: Lactated Ringer's (Ringers, Lactated) Confirm Administered Dose 1,000 mls @ as directed .ROUTE .STK-MED ONE Stop: 05/27/21 13:09 Lactated Ringer's (Ringers, Lactated) Confirm Administered Dose 1,000 mls @ as directed .ROUTE .STK-MED ONE Stop: 05/27/21 13:10 Lactated Ringer's (Ringers, Lactated) Confirm Administered Dose 1,000 mls @ as directed .ROUTE .STK-MED ONE Stop: 05/27/21 15:05 Piperacillin Sod/Tazobactam (Sod 4.5 gm/ Sodium Chloride) 100 mls @ 25 mls/hr IV Q8H [facility] Last Admin: 05/28/21 09:05 Dose: 25 mls/hr Documented by: Piperacillin Sod/Tazobactam (Sod 4.5 gm/ Sodium Chloride) 100 mls @ 200 mls/hr IV ONETIME ONE Stop: 05/27/21 17:29 Last Admin: 05/27/21 18:41 Dose: 200 mls/hr Documented by: Fluconazole/Sodium Chloride (200 mg/ Premix) 100 mls @ 100 mls/hr IV Q24H [facility] Last Admin: 05/27/21 20:09 Dose: 100 mls/hr Documented by: Lactated Ringer's (Ringers, Lactated) 1,000 mls @ 50 mls/hr IV ASDIRECTED [facility] Last Admin: 05/28/21 18:32 Dose: 125 mls/hr Documented by: Magnesium Sulfate 4 gm/ Premix 50 mls @ 12.5 mls/hr IV ONETIME ONE Stop: 05/28/21 12:59 Last Admin: 05/28/21 09:04 Dose: 12.5 mls/hr Documented by: Potassium Phosphate 30 mmole/ (Sodium Chloride) 510 mls @ 102 mls/hr IV ASDIRECTED [facility] Stop: 05/29/21 12:59 Ketamine HCl (Ketamine 500 Mg/10 Ml Mdv) Confirm Administered Dose 500 mg .ROUTE .STK-MED ONE Stop: 05/27/21 11:37 Ketorolac Tromethamine (Ketorolac 30 Mg/Ml Sdv) Confirm Administered Dose 30 mg .ROUTE .STK-MED ONE Stop: 05/27/21 08:02 Ketorolac Tromethamine (Ketorolac 30 Mg/Ml Sdv) 30 mg IM Q6H PRN PRN Reason: Pain (moderate 4-6) Ketorolac Tromethamine (Ketorolac 15 Mg/Ml Sdv) 15 mg IVPUSH Q6H PRN PRN Reason: Pain Last Admin: 05/28/21 11:37 Dose: 15 mg Documented by: Lidocaine/Sodium Bicarbonate (Lidocaine 1%/Sod Bicarbonate In Ns 8.4% 1 Ml Syringe) 0.25 ml IDERM ONETIME PRN PRN Reason: Prior to IV Start Stop: 05/27/21 18:00 Last Admin: 05/27/21 09:05 Dose: 0.25 ml Documented by: Midazolam HCl (Midazolam 1 Mg/Ml 2 Ml Sdv) Confirm Administered Dose 2 mg .ROUTE .STK-MED ONE Stop: 05/27/21 07:59 Neostigmine Methylsulfate (Neostigmine Methylsulfate 5 Mg/5 Ml Syringe) Confirm Administered Dose 5 mg .ROUTE .STK-MED ONE Stop: 05/27/21 15:55 Ondansetron HCl (Ondansetron 4 Mg/2 Ml Sdv) Confirm Administered Dose 4 mg .ROUTE .STK-MED ONE Stop: 05/27/21 08:00 Ondansetron HCl (Ondansetron 4 Mg/2 Ml Sdv) 4 mg IVPUSH ONETIME PRN PRN Reason: Nausea/Vomiting Stop: 05/27/21 18:00 Ondansetron HCl (Ondansetron 4 Mg/2 Ml Sdv) Confirm Administered Dose 4 mg .ROUTE .STK-MED ONE Stop: 05/27/21 14:19 Propofol (Propofol 200 Mg/20 Ml Sdv) Confirm Administered Dose 200 mg .ROUTE .S TK-MED ONE Stop: 05/27/21 07:59 Rocuronium [place] (Rocuronium 50 Mg/5 Ml Vial) Confirm Administered Dose 50 mg .ROUTE .STK-MED ONE Stop: 05/27/21 08:02 Rocuronium [place] (Rocuronium 50 Mg/5 Ml Vial) Confirm Administered Dose 50 mg .ROUTE .STK-MED ONE Stop: 05/27/21 11:21 Scopolamine (Scopolamine 1.5 Mg Transdermal Patch) 1.5 mg TRDERM Q72H PRN PRN Reason: Nausea Stop: 05/27/21 23:00 Scopolamine (Scopolamine 1.5 Mg Transdermal Patch) 1.5 mg TRDERM ONETIME ONE Stop: 05/27/21 09:20 Last Admin: 05/27/21 09:33 Dose: 1.5 mg Documented by: Sodium Chloride (Sodium Chloride 0.9% 10 Ml Syringe) 10 ml FLUSH ASDIRECTED PRN PRN Reason: Keep Vein Open Stop: 05/27/21 18:00 Sodium Phosphate (Phosphorus #1 250 Mg Tab) 250 mg PO QID [facility] - Exam General: Alert, Oriented, Cooperative Lungs: Clear to Auscultation, Normal Respiratory Effort Cardiovascular: Regular Rate, Regular Rhythm GI/Abdominal Exam: Normal Bowel Sounds, Soft, Tender (appropriately) - Patient Data Lab Results Last 24 hrs: Laboratory Results - last 24 hr 05/29/21 05/29/21 Range/Units 05:11 05:11 WBC 6.12 (3.98-10.04) K/mm3 RBC 3.27 L (3.98-5.22) M/mm3 Hgb 10.0 L D (11.2-15.7) gm/dl Hct 30.6 L (34.1-44.9) % MCV 93.6 (79.4-94.8) fl MCH 30.6 (25.6-32.2) pg MCHC 32.7 (32.2-35.5) g/dl RDW Std Deviation 45.3 (36.4-46.3) fL Plt Count 221 (182-369) K/mm3 MPV 10.1 (9.4-12.3) fl Neut % (Auto) 64.5 (34.0-71.1) % Lymph % (Auto) 27.6 (19.3-51.7) % [place] % (Auto) 6.5 (4.7-12.5) % Eos % (Auto) 1.1 (0.7-5.8) Baso % (Auto) 0.3 (0.1-1.2) % Neut # (Auto) 3.94 (1.56-6.13) K/mm3 Lymph # (Auto) 1.69 (1.18-3.74) K/mm3 [place] # (Auto) 0.40 H (0.24-0.36) K/mm3 Eos # (Auto) 0.07 (0.04-0.36) K/mm3 Baso # (Auto) 0.02 (0.01-0.08) K/mm3 Sodium 143 (136-145) mEq/L Potassium 3.5 (3.5-5.1) mEq/L Chloride 109 H (98-107) mEq/L Carbon Dioxide 28 (21-32) mEq/L Anion Gap 9.5 (5-15) BUN 5 L (7-18) mg/dL Creatinine 0.7 (0.55-1.02) mg/dL Est Cr Clr Drug Dosing 74.43 mL/min Estimated GFR (MDRD) > 60 (>60) mL/min BUN/Creatinine Ratio 7.1 L (14-18) Glucose 88 (70-99) mg/dL Calcium 7.6 L (8.5-10.1) mg/dL Phosphorus 1.8 L (2.6-4.7) mg/dL Magnesium 2.0 (1.8-2.4) mg/dL Result Diagrams: 05/29/21 05:11 05/29/21 05:11 Sepsis Event Note - Evaluation Sepsis Screening Result: No Definite Risk - Focused Exam Vital Signs: Vital Signs Temp Pulse Resp BP Pulse Ox 05/29/21 11:27 97.7 F 55 L 16 118/72 99 05/29/21 07:58 98.1 F 63 20 104/72 97 05/29/21 06:16 98.1 F 62 20 96/64 92 L 05/29/21 01:18 98.8 F 70 16 112/64 92 L - Problem List Review Problem List Initiated/Reviewed/Updated: No - My Orders Last 24 Hours: My Active Orders 05/28/21 12:15 oxyCODONE 5 mg PO Q6H PRN 05/28/21 12:19 Albuterol [Proventil HFA] 0 gm INH Q4H PRN 05/28/21 13:00 Acetaminophen [TylenoL] 650 mg PO Q6H 05/28/21 Dinner Clear Liquid Diet [DIET] 05/28/21 23:17 Patient Status [ADT] Routine 05/29/21 08:00 Potassium Phosphates 30 mmole Sodium Chloride 0.9% [Normal Saline] 500 ml IV ONETIME 05/29/21 Lunch Full Liquid Diet [DIET] 05/30/21 05:11 BASIC METABOLIC PANEL,BMP [CHEM] AM CBC WITH AUTO DIFF [HEME] AM MAGNESIUM [CHEM] AM PHOSPHORUS [CHEM] AM - Assessment Assessment:: POD2 s/p hiatal hernia repair and Katya Fundoplication. Had a small esophageal mucosal tear due to bougie placement. EGD with clips placed. - Plan Plan:: - Advance to full liquids - meds to be crushed - dc IVF - ambulate - pain control DIspo: is doing ok, may go home this evening
[2021-05-29 15:49] VITALS: BP 106/74
[2021-05-29] MEDS: oxyCODONE 5 MG Tab PO PRN (17:31)
--- NOTE | 2021-05-29 18:26 | PCM.DCSUM1 ---
Discharge Summary - Hospital Course Free Text/Narrative:: Patient underwent a hiatal hernia repair with Katya fundoplication. She had a small esophageal mucosal tear treated with clips. FOllow up UGI did not show a leak. SHe was started on CLD, tolerated that and was advanced to FLD. SHe will be discharged on FLD. Diagnosis: Stroke: No - Discharge Data Discharge Date: 05/29/21 Discharge Disposition: Home, Self-Care 01 Condition: Good - Referral to Home Health Primary Care Physician: PCP None - Patient Instructions Diet: Full Liquid Diet (for 10-14 days) Activity: No Lifting Over 20 Pounds (for 4 weeks) Driving: Do Not Drive Showering/Bathing: May Shower Wound/Incision Care: Keep Operative Site/Wound Site Clean and Dry Notify Provider of: Fever, Increased Pain, Swelling and Redness, Nausea and/or Vomiting Other/Special Instructions: - Take Tylenol or Ibuprofen for pain. If pain becomes severe, take the prescribed opioid pain medications. - While on opioid meds, take Miralax to avoid constipation. - Please crush all meds to avoid medications getting stuck in the esophagus. - Eat small frequent meals. Slowly. Avoid overeating. - Sit upright while eating and stay upright for 30 min after eating. - Discharge Plan *PRESCRIPTION DRUG MONITORING PROGRAM REVIEWED*: No *COPY OF PRESCRIPTION DRUG MONITORING REPORT IN PATIENT LIDIA: No Prescriptions/Med Rec: oxyCODONE 5 mg PO Q6H PRN 5 Days #20 tablet PRN Reason: Pain (Moderate 4-6) Home Medications: Home Meds Albuterol [Ventolin HFA] 1 puff INH ASDIRECTED PRN 05/24/21 [History] Inulin/Chromium Picolinate [Fiber Gummies] 1 tab PO DAILY 05/24/21 [History] L.acidoph,Paracasei, B.lactis [Probiotic] 2 cap PO DAILY 05/24/21 [History] polyethylene glycoL 3350 [MiraLAX] 17 gm PO ASDIRECTED PRN 05/24/21 [History] Acetaminophen [Tylenol] 650 mg PO Q6H tablet 05/29/21 [Rx] oxyCODONE 5 mg PO Q6H PRN 5 Days #20 tablet 05/29/21 [Rx] Oxygen Therapy Mode: Room Air Patient Handouts: Hiatal Hernia Referrals: Jorge Coley MD [Physician] - (Follow up with me on 06/07/2021) - Discharge Summary/Plan Comment DC Time >30 min.: Yes - General Info Date of Service: 05/29/21 Admission Dx/Problem (Free Text: Hiatal hernia repair Subjective Update: Tolerated clears fairly well. pain is better. ambulated, urinating Functional Status: Reports: Pain Controlled, Tolerating Diet, Ambulating, Urinating - Review of Systems General: Reports: No Symptoms HEENT: Reports: No Symptoms Pulmonary: Reports: No Symptoms Cardiovascular: Reports: No Symptoms Gastrointestinal: Reports: No Symptoms Genitourinary: Reports: No Symptoms Musculoskeletal: Reports: No Symptoms Skin: Reports: No Symptoms Neurological: Reports: No Symptoms - Patient Data Vitals - Most Recent: Last Vital Signs Temp 97.9 F 05/29/21 15:24 Pulse 55 L 05/29/21 15:24 Resp 20 05/29/21 15:24 BP 106/74 05/29/21 15:24 Pulse Ox 100 05/29/21 15:24 Weight - Most Recent: 48.262 kg I&O - Last 24 hours: Intake & Output 05/29/21 05/29/21 05/29/21 06:59 14:59 22:59 Intake Total 882 320 300 Output Total 800 100 Balance 82 320 200 Lab Results - Last 24 hrs: Laboratory Results - last 24 hr 05/29/21 05/29/21 Range/Units 05:11 05:11 WBC 6.12 (3.98-10.04) K/mm3 RBC 3.27 L (3.98-5.22) M/mm3 Hgb 10.0 L D (11.2-15.7) gm/dl Hct 30.6 L (34.1-44.9) % MCV 93.6 (79.4-94.8) fl MCH 30.6 (25.6-32.2) pg MCHC 32.7 (32.2-35.5) g/dl RDW Std Deviation 45.3 (36.4-46.3) fL Plt Count 221 (182-369) K/mm3 MPV 10.1 (9.4-12.3) fl Neut % (Auto) 64.5 (34.0-71.1) % Lymph % (Auto) 27.6 (19.3-51.7) % Eagle % (Auto) 6.5 (4.7-12.5) % Eos % (Auto) 1.1 (0.7-5.8) Baso % (Auto) 0.3 (0.1-1.2) % Neut # (Auto) 3.94 (1.56-6.13) K/mm3 Lymph # (Auto) 1.69 (1.18-3.74) K/mm3 Eagle # (Auto) 0.40 H (0.24-0.36) K/mm3 Eos # (Auto) 0.07 (0.04-0.36) K/mm3 Baso # (Auto) 0.02 (0.01-0.08) K/mm3 Sodium 143 (136-145) mEq/L Potassium 3.5 (3.5-5.1) mEq/L Chloride 109 H (98-107) mEq/L Carbon Dioxide 28 (21-32) mEq/L Anion Gap 9.5 (5-15) BUN 5 L (7-18) mg/dL Creatinine 0.7 (0.55-1.02) mg/dL Est Cr Clr Drug Dosing 74.43 mL/min Estimated GFR (MDRD) > 60 (>60) mL/min BUN/Creatinine Ratio 7.1 L (14-18) Glucose 88 (70-99) mg/dL Calcium 7.6 L (8.5-10.1) mg/dL Phosphorus 1.8 L (2.6-4.7) mg/dL Magnesium 2.0 (1.8-2.4) mg/dL Med Orders - Current: Current Medications Acetaminophen (Acetaminophen 325 Mg Tab) 650 mg PO Q6H [facility] Last Admin: 05/29/21 13:18 Dose: 650 mg Documented by: Albuterol (Albuterol 6.7 Gm Inhaler) 0 gm INH Q4H PRN PRN Reason: Shortness of Breath Enoxaparin Sodium (Enoxaparin 30 Mg/0.3 Ml Syringe) 30 mg SUBCUT DAILY [facility] Last Admin: 05/29/21 08:30 Dose: 30 mg Documented by: Hydromorphone HCl (Hydromorphone 0.5 Mg/0.5 Ml Syringe) 0.5 mg IVPUSH Q2H PRN PRN Reason: Pain (severe 7-10) Last Admin: 05/28/21 09:05 Dose: 0.5 mg Documented by: Miscellaneous Information (Remove Patch) 0 ea TRDERM ONETIME ONE Stop: 05/30/21 09:01 Ondansetron HCl (Ondansetron 4 Mg/2 Ml Sdv) 4 mg IV Q4H PRN PRN Reason: Nausea/Vomiting Oxycodone HCl (Oxycodone 5 Mg Tab) 5 mg PO Q6H PRN PRN Reason: Pain (moderate 4-6) Last Admin: 05/29/21 17:31 Dose: 5 mg Documented by: Pantoprazole Sodium (Pantoprazole 40 Mg Vial) 40 mg IV Q12HR [facility] Last Admin: 05/29/21 08:30 Dose: 40 mg Documented by: Discontinued Medications Barium Sulfate (Barium Sulfate 60% W/V Susp 355 Ml Bottle) 355 ml PO PREPRO ONE Stop: 05/28/21 11:55 Last Admin: 05/28/21 12:20 Dose: 355 ml Documented by: Bupivacaine HCl/Epinephrine Bitart (Bupivacaine 0.5%/Epinephrine 1:200,000 50 Ml Mdv) Confirm Administered Dose 50 ml .ROUTE .STK-MED ONE Stop: 05/27/21 09:38 Last Admin: 05/27/21 10:43 Dose: 40 ml Documented by: Cefazolin Sodium (Cefazolin 1 Gm Vial) Confirm Administered Dose 2 gm .ROUTE .STK-MED ONE Stop: 05/27/21 10:26 Cefazolin Sodium (Cefazolin 1 Gm Vial) Confirm Administered Dose 2 gm .ROUTE .STK-MED ONE Stop: 05/27/21 14:16 Cefazolin Sodium (Cefazolin 1 Gm Vial) Confirm Administered Dose 2 gm .ROUTE .STK-MED ONE Stop: 05/27/21 14:17 Dexamethasone (Dexamethasone 4 Mg/Ml 5 Ml Mdv) Confirm Administered Dose 20 mg .ROUTE .STK-MED ONE Stop: 05/27/21 08:02 Diatrizoate Meglum/Diatrizoate Sod (Diatrizoate Meglumine/Diatrizoate Sodium 37% 120 Ml Bottle) 360 ml PO ONETIME ONE Stop: 05/28/21 11:55 Last Admin: 05/28/21 12:20 Dose: 240 ml Documented by: Diphenhydramine HCl (Diphenhydramine 50 Mg/Ml Sdv) 25 mg IVPUSH Q6H PRN PRN Reason: pruritis Stop: 05/27/21 18:00 Fentanyl (Fentanyl 250 Mcg/5 Ml Sdv) Confirm Administered Dose 250 mcg .ROUTE .STK-MED ONE Stop: 05/27/21 08:03 Fentanyl (Fentanyl 100 Mcg/2 Ml Sdv) 50 mcg IVPUSH Q5M PRN PRN Reason: Pain Stop: 05/27/21 18:00 Glycopyrrolate (Glycopyrrolate 0.2 Mg/Ml Sdv) Confirm Administered Dose 0.2 mg .ROUTE .STK-MED ONE Stop: 05/27/21 15:55 Glycopyrrolate (Glycopyrrolate 0.2 Mg/Ml Sdv) Confirm Administered Dose 0.2 mg .ROUTE .STK-MED ONE Stop: 05/27/21 15:55 Hydromorphone HCl (Hydromorphone 0.5 Mg/0.5 Ml Syringe) 0.5 mg IVPUSH Q10M PRN PRN Reason: Pain (severe 7-10) Stop: 05/27/21 18:00 Hydromorphone HCl (Hydromorphone 0.5 Mg/0.5 Ml Syringe) Confirm Administered Dose 0.5 mg .ROUTE .STK-MED ONE Stop: 05/27/21 11:20 Hydromorphone HCl (Hydromorphone 0.5 Mg/0.5 Ml Syringe) Confirm Administered Dose 0.5 mg .ROUTE .STK-MED ONE Stop: 05/27/21 13:02 Hydromorphone HCl (Hydromorphone 0.5 Mg/0.5 Ml Syringe) Confirm Administered Dose 0.5 mg .ROUTE .STK-MED ONE Stop: 05/27/21 14:09 Lactated Ringer's (Ringers, Lactated) 1,000 mls @ 125 mls/hr IV ASDIRECTED [facility] Stop: 05/27/21 23:00 Last Admin: 05/27/21 09:05 Dose: 125 mls/hr Documented by: Lidocaine HCl (Xylocaine-Mpf 1%) Confirm Administered Dose 4 mls @ as directed .ROUTE .STK-MED ONE Stop: 05/27/21 08:02 Potassium Chloride 10 meq/ (Premix) 100 mls @ 100 mls/hr IV Q1H [facility] Stop: 05/27/21 14:59 Last Admin: 05/27/21 18:55 Dose: Not Given Documented by: Lactated Ringer's (Ringers, Lactated) Confirm Administered Dose 1,000 mls @ as directed .ROUTE .STK-MED ONE Stop: 05/27/21 13:09 Lactated Ringer's (Ringers, Lactated) Confirm Administered Dose 1,000 mls @ as directed .ROUTE .STK-MED ONE Stop: 05/27/21 13:10 Lactated Ringer's (Ringers, Lactated) Confirm Administered Dose 1,000 mls @ as directed .ROUTE .STK-MED ONE Stop: 05/27/21 15:05 Piperacillin Sod/Tazobactam (Sod 4.5 gm/ Sodium Chloride) 100 mls @ 25 mls/hr IV Q8H [facility] Last Admin: 05/28/21 09:05 Dose: 25 mls/hr Documented by: Piperacillin Sod/Tazobactam (Sod 4.5 gm/ Sodium Chloride) 100 mls @ 200 mls/hr IV ONETIME ONE Stop: 05/27/21 17:29 Last Admin: 05/27/21 18:41 Dose: 200 mls/hr Documented by: Fluconazole/Sodium Chloride (200 mg/ Premix) 100 mls @ 100 mls/hr IV Q24H [facility] Last Admin: 05/27/21 20:09 Dose: 100 mls/hr Documented by: Lactated Ringer's (Ringers, Lactated) 1,000 mls @ 50 mls/hr IV ASDIRECTED [facility] Last Admin: 05/28/21 18:32 Dose: 125 mls/hr Documented by: Magnesium Sulfate 4 gm/ Premix 50 mls @ 12.5 mls/hr IV ONETIME ONE Stop: 05/28/21 12:59 Last Admin: 05/28/21 09:04 Dose: 12.5 mls/hr Documented by: Potassium Phosphate 30 mmole/ (Sodium Chloride) 510 mls @ 102 mls/hr IV ASDIRECTED [facility] Stop: 05/29/21 12:59 Potassium Phosphate 30 mmole/ (Sodium Chloride) 510 mls @ 102 mls/hr IV ONETIME [facility] Stop: 05/29/21 12:59 Last Admin: 05/29/21 08:30 Dose: 102 mls/hr Documented by: Ketamine HCl (Ketamine 500 Mg/10 Ml Mdv) Confirm Administered Dose 500 mg .ROUTE .STK-MED ONE Stop: 05/27/21 11:37 Ketorolac Tromethamine (Ketorolac 30 Mg/Ml Sdv) Confirm Administered Dose 30 mg .ROUTE .STK-MED ONE Stop: 05/27/21 08:02 Ketorolac Tromethamine (Ketorolac 30 Mg/Ml Sdv) 30 mg IM Q6H PRN PRN Reason: Pain (moderate 4-6) Ketorolac Tromethamine (Ketorolac 15 Mg/Ml Sdv) 15 mg IVPUSH Q6H PRN PRN Reason: Pain Last Admin: 05/28/21 11:37 Dose: 15 mg Documented by: Lidocaine/Sodium Bicarbonate (Lidocaine 1%/Sod Bicarbonate In Ns 8.4% 1 Ml Syringe) 0.25 ml IDERM ONETIME PRN PRN Reason: Prior to IV Start Stop: 05/27/21 18:00 Last Admin: 05/27/21 09:05 Dose: 0.25 ml Documented by: Midazolam HCl (Midazolam 1 Mg/Ml 2 Ml Sdv) Confirm Administered Dose 2 mg .ROUTE .STK-MED ONE Stop: 05/27/21 07:59 Neostigmine Methylsulfate (Neostigmine Methylsulfate 5 Mg/5 Ml Syringe) Confirm Administered Dose 5 mg .ROUTE .STK-MED ONE Stop: 05/27/21 15:55 Ondansetron HCl (Ondansetron 4 Mg/2 Ml Sdv) Confirm Administered Dose 4 mg .ROUTE .STK-MED ONE Stop: 05/27/21 08:00 Ondansetron HCl (Ondansetron 4 Mg/2 Ml Sdv) 4 mg IVPUSH ONETIME PRN PRN Reason: Nausea/Vomiting Stop: 05/27/21 18:00 Ondansetron HCl (Ondansetron 4 Mg/2 Ml Sdv) Confirm Administered Dose 4 mg .ROUTE .STK-MED ONE Stop: 05/27/21 14:19 Propofol (Propofol 200 Mg/20 Ml Sdv) Confirm Administered Dose 200 mg .ROUTE .STK-MED ONE Stop: 05/27/21 07:59 Rocuronium [place] (Rocuronium 50 Mg/5 Ml Vial) Confirm Administered Dose 50 mg .ROUTE .STK-MED ONE Stop: 05/27/21 08:02 Rocuronium [place] (Rocuronium 50 Mg/5 Ml Vial) Confirm Administered Dose 50 mg .ROUTE .STK-MED ONE Stop: 05/27/21 11:21 Scopolamine (Scopolamine 1.5 Mg Transdermal Patch) 1.5 mg TRDERM Q72H PRN PRN Reason: Nausea Stop: 05/27/21 23:00 Scopolamine (Scopolamine 1.5 Mg Transdermal Patch) 1.5 mg TRDERM ONETIME ONE Stop: 05/27/21 09:20 Last Admin: 05/27/21 09:33 Dose: 1.5 mg Documented by: Sodium Chloride (Sodium Chloride 0.9% 10 Ml Syringe) 10 ml FLUSH ASDIRECTED PRN PRN Reason: Keep Vein Open Stop: 05/27/21 18:00 Sodium Phosphate (Phosphorus #1 250 Mg Tab) 250 mg PO QID [facility] - Exam General: Reports: Alert, Oriented, Cooperative Lungs: Reports: Clear to Auscultation, Normal Respiratory Effort Cardiovascular: Reports: Regular Rate, Regular Rhythm GI/Abdominal Exam: Soft, No Distention, Tender (appropriately)
== END 2021-05-29 19:00 | disposition home or self-care (01) ==
LOC: JD.SDS 08:53 → JD.MS 08:55 → JD.SDS 05-28 00:56 → JD.MS 05-28 00:56
PROVIDERS: ADMIT Surgery; ATTEND Surgery
DX: K44.9 Diaphragmatic hernia without obstruction or gangrene (principal); K22.3 Perforation of esophagus; K64.9 Unspecified hemorrhoids; K29.70 Gastritis, unspecified, without bleeding; Z86.010 Personal history of colon polyps; Z87.891 Personal history of nicotine dependence
CPT/HCPCS: 36415; 43254; 43281; 51798; 74220; 80048; 80051; 81025; 83735; 84100; 84132; 85025; 94762; 96365; 96366; 96367; 96368; 96372; 96375; A9270; C9113; G0378; J0690; J1100; J1170; J1450; J1650; J1885; J2250; J2405; J2543; J2704; J2710; J3010; J3475; J3480; J3490; J7040; J7120; 00790

== ENCOUNTER 2022-12-09 00:07 | Emergency (ER) | payer OTHER ==
[2022-12-09 00:20] VITALS: BP 132/90; PULSE 68
[2022-12-09] MEDS ORDERED: HYDROmorphone 0.5 MG/0.5 ML Syringe IVPUSH ONE (00:27)
[2022-12-09] MEDS ORDERED: Metoclopramide 10 MG/2 ML SDV IVPUSH ONE (00:27)
[2022-12-09] MEDS ORDERED: Dextrose 5%-0.9% NaCl 1,000 ML IV SCH (00:30)
== END 2022-12-09 01:29 | disposition home or self-care (01) ==
LOC: JD.ED 00:07
DX: M54.81 Occipital neuralgia (principal); Z79.899 Other long term (current) drug therapy
CPT/HCPCS: 70450; 96361; 96374; 96375; 99284; J1170; J2765; J7042

== ENCOUNTER 2023-12-28 07:10 | Emergency (ER) | payer OTHER ==
[2023-12-28] MEDS ORDERED: Sodium Chloride 0.9% 1,000 ML IV ONE (07:33)
[2023-12-28 08:17] LABS: HEMATOCRIT 44.2 % (37.0-47.0); HEMOGLOBIN 15.6 gm/dl (12.0-16.0); MEAN CORPUSCULAR HEMOGLOBIN 30.1 pg (28.0-32.0); MEAN CORPUSCULAR HGB CONC 35.3 g/dl (32.0-36.0); MEAN CORPUSCULAR VOLUME 85.2 fl (83.0-99.0); MEAN PLATELET VOLUME 9.6 fl (9.4-12.3); PLATELET COUNT,PLT 475 K/mm3 (150-400); RED BLOOD CELL COUNT 5.19 M/mm3 (4.10-5.30); WHITE BLOOD CELL COUNT,WBC 10.92 K/mm3 (3.9-11.3)
[2023-12-28 08:57] LABS: ALBUMIN 3.6 g/dl (3.4-5.0); ANION GAP 15.5 (5-15); BILIRUBIN TOTAL 0.4 mg/dL (0.2-1.0); BUN/CREATININE RATIO 10.8 (14-18); CALCIUM 8.8 mg/dL (8.5-10.1); CREATININE 1.2 mg/dL (0.55-1.02); EST CRCL DRUG DOSING (CG) 37.22 mL/min; MAGNESIUM 1.7 mg/dL (1.8-2.4); PROTEIN TOTAL,TP 7.1 g/dl (6.4-8.2)
[2023-12-28 09:07] LABS: CORONAVIRUS COVID-19 NAA NEGATIVE (NEGATIVE); INFLUENZA A NAA NEGATIVE (NEGATIVE); RESPIRATORY SYNCYTIAL VIR NAA NEGATIVE (NEGATIVE)
[2023-12-28 09:08] LABS: POTASSIUM,K 2.5 mEq/L (3.5-5.1)
[2023-12-28] MEDS ORDERED: Potassium Chloride 20 MEQ Tab.ER PO ONE (09:46)
[2023-12-28] MEDS: Potassium Chloride 10 MEQ in Premix Bag 1 BAG IV SCH ×2 (10:00→11:18)
[2023-12-28] MEDS ORDERED: Sodium Chloride 0.9% 1,000 ML IV SCH (10:00)
[2023-12-28 13:30] LABS: ANION GAP 12.4 (5-15); BUN/CREATININE RATIO 11.1 (14-18); CALCIUM 7.8 mg/dL (8.5-10.1); CREATININE 0.9 mg/dL (0.55-1.02); EST CRCL DRUG DOSING (CG) 49.63 mL/min; POTASSIUM,K 3.4 mEq/L (3.5-5.1)
[2023-12-28 15:13] VITALS: BP 120/75; PULSE 77
== END 2023-12-28 15:02 | disposition home or self-care (01) ==
LOC: JD.ED 07:10
DX: E87.6 Hypokalemia (principal); R19.7 Diarrhea, unspecified; Z79.899 Other long term (current) drug therapy
CPT/HCPCS: 0241U; 36415; 80048; 80053; 83690; 83735; 84484; 85027; 96361; 96365; 96366; 99284; A9270; J3480; J7030

== ENCOUNTER 2024-09-21 13:54 | Observation (INO) | payer OTHER ==
[2024-09-21] MEDS: Potassium Chloride 10 MEQ in Premix Bag 1 BAG IV SCH (14:44)
[2024-09-21] MEDS: Sodium Chloride 0.9% 1,000 ML IV SCH (14:45)
[2024-09-21] MEDS: Sodium Chloride 0.9% 10 ML Syringe FLUSH PRN (14:45)
[2024-09-21 14:58] LABS: BASOPHILS ABSOLUTE AUTO 0.1 K/mm3 (0.0-0.2); BASOPHILS PERCENT AUTO 0.6 % (0.0-1.0); EOSINOPHILS ABSOLUTE AUTO 0.6 K/mm3 (0.0-0.4); EOSINOPHILS PERCENT AUTO 7.3 % (0.0-6.0); HEMATOCRIT 41.2 % (37.0-47.0); HEMOGLOBIN 14.3 gm/dl (12.0-16.0); IMMATURE GRAN ABSOLUTE AUTO 0.03 K/mm3 (0.00-0.05); IMMATURE GRAN PERCENT AUTO 0.4 % (0.0-0.4); LYMPHOCYTES ABSOLUTE AUTO 1.5 K/mm3 (1.0-4.8); LYMPHOCYTES PERCENT AUTO 18.6 % (24.0-44.0); MEAN CORPUSCULAR HEMOGLOBIN 29.7 pg (28.0-32.0); MEAN CORPUSCULAR HGB CONC 34.7 g/dl (32.0-36.0); MEAN CORPUSCULAR VOLUME 85.7 fl (83.0-99.0); MEAN PLATELET VOLUME 9.4 fl (9.4-12.3); MONOCYTES ABSOLUTE AUTO 0.8 K/mm3 (0.0-0.8); MONOCYTES PERCENT AUTO 9.9 % (0.0-8.0); NEUTROPHILS ABSOLUTE AUTO 5.2 K/mm3 (1.8-7.7); NEUTROPHILS PERCENT AUTO 63.2 % (41.0-71.0); PLATELET COUNT,PLT 345 K/mm3 (150-400); RED BLOOD CELL COUNT 4.81 M/mm3 (4.10-5.30); WHITE BLOOD CELL COUNT,WBC 8.19 K/mm3 (3.9-11.3)
[2024-09-21 15:20] LABS: LACTIC ACID 0.8 mmol/L (0.4-2.0)
[2024-09-21 15:25] LABS: A/G RATIO 1.1 (1-2); ALBUMIN 3.7 g/dl (3.4-5.0); ANION GAP 10.1 (5-15); BILIRUBIN TOTAL 0.5 mg/dL (0.2-1.0); BUN/CREATININE RATIO 8.6 (14-18); C-REACTIVE PROTEIN 0.09 mg/dL (<0.30); CALCIUM 9.2 mg/dL (8.5-10.1); CREATININE 0.7 mg/dL (0.55-1.02); MAGNESIUM 1.6 mg/dL (1.8-2.4); POTASSIUM,K 2.1 mEq/L (3.5-5.1)
[2024-09-21] MEDS ORDERED: Magnesium Sulfate (4.06 MEQ/ML) 5 GM/10 ML SDV IV ONE (15:27)
[2024-09-21 15:32] LABS: STREP A BY PCR NOT DETECTED (NOT DETECT)
[2024-09-21 15:45] LABS: CORONAVIRUS COVID-19 NAA NEGATIVE (NEGATIVE); INFLUENZA A NAA NEGATIVE (NEGATIVE); RESPIRATORY SYNCYTIAL VIR NAA NEGATIVE (NEGATIVE)
[2024-09-21] MEDS: Potassium Chloride 20 MEQ Tab.ER PO ONE (16:17)
[2024-09-21] MEDS: Magnesium Oxide 400 MG Tab PO ONE (16:17)
[2024-09-21] MEDS: Magnesium Sulfate/Water Premix 2 GM in Premix Bag 1 BAG IV ONE (16:17)
[2024-09-21] MEDS ORDERED: Ondansetron 4 MG/2 ML SDV IV PRN (16:46)
[2024-09-21] MEDS ORDERED: oxyCODONE 5 MG Tab PO PRN (16:46)
[2024-09-21] MEDS ORDERED: Sennosides/Docusate Sodium 50-8.6 MG Tab PO PRN (16:46)
[2024-09-21] MEDS ORDERED: hydrALAZINE 20 MG/ML SDV IVPUSH PRN (16:53)
[2024-09-21] MEDS ORDERED: Labetalol 100 MG/20 ML MDV IVPUSH PRN (16:53)
[2024-09-21] MEDS: Acetaminophen 325 MG Tab PO PRN (19:59)
[2024-09-21] MEDS: Melatonin 3 MG Tab PO PRN (21:26)
[2024-09-22 05:30] LABS: ANION GAP 6.1 (5-15); BUN/CREATININE RATIO 6.7 (14-18); CALCIUM 7.7 mg/dL (8.5-10.1); CREATININE 0.6 mg/dL (0.55-1.02); EST CRCL DRUG DOSING (CG) 75.67 mL/min; MAGNESIUM 2.1 mg/dL (1.8-2.4); PHOSPHORUS 2.2 mg/dL (2.6-4.7); POTASSIUM,K 3.1 mEq/L (3.5-5.1); TSH 3.433 uIU/mL (0.358-3.74)
[2024-09-22] MEDS ORDERED: Calcium Gluconate 10% 1 GM/10 ML SDV IV ONE ×2 (09:00)
[2024-09-22] MEDS: Enoxaparin 40 MG/0.4 ML Syringe SUBCUT SCH (09:05)
[2024-09-22] MEDS: Potassium Chloride 20 MEQ Tab.ER PO ONE (09:16)
[2024-09-22] MEDS: Folic Acid 1 MG Tab PO SCH (09:17)
[2024-09-22] MEDS ORDERED: Folic Acid 50 MG/10 ML MDV IV SCH (09:30)
[2024-09-22] MEDS: Potassium Phosphates 30 MMOLE in Sodium Chloride 0.9% 500 ML IV SCH (10:14)
[2024-09-22] MEDS: Benzocaine 20% Topical Spray UD MUCMEM ONE (10:14)
[2024-09-22 14:28] VITALS: BP 131/93; PULSE 72
[2024-09-25 04:42] LABS: VITAMIN D 1,25 29.9 pg/mL (19.9-79.3)
== END 2024-09-22 15:26 | disposition home or self-care (01) ==
LOC: JD.ED 13:54 → JD.MS 16:46
PROVIDERS: ADMIT Student in an Organized Health Care Education/Training Program; ATTEND Student in an Organized Health Care Education/Training Program
DX: E87.6 Hypokalemia (principal); E83.42 Hypomagnesemia; J06.9 Acute upper respiratory infection, unspecified
CPT/HCPCS: 0241U; 36415; 71046; 80048; 80053; 82607; 82652; 82746; 83605; 83735; 84100; 84443; 84702; 85025; 86140; 87651; 93005; 96365; 96366; 96367; 96368; 96372; 99285; A9270; G0378; J0612; J1650; J3475; J3480; J3490; J7030; J7040; 93010; 99284

== ENCOUNTER 2025-10-19 07:55 | Emergency (ER) | payer OTHER ==
[2025-10-19] MEDS ORDERED: Sodium Chloride 0.9% 10 ML Syringe FLUSH PRN (08:55)
[2025-10-19 09:31] LABS: BASOPHILS ABSOLUTE AUTO 0.1 K/mm3 (0.0-0.2); BASOPHILS PERCENT AUTO 1.0 % (0.0-1.0); EOSINOPHILS ABSOLUTE AUTO 0.3 K/mm3 (0.0-0.4); EOSINOPHILS PERCENT AUTO 3.6 % (0.0-6.0); IMMATURE GRAN ABSOLUTE AUTO 0.01 K/mm3 (0.00-0.05); IMMATURE GRAN PERCENT AUTO 0.1 % (0.0-0.4); LYMPHOCYTES ABSOLUTE AUTO 1.2 K/mm3 (1.0-4.8); LYMPHOCYTES PERCENT AUTO 17.2 % (24.0-44.0); MEAN PLATELET VOLUME 9.3 fl (9.4-12.3); MONOCYTES ABSOLUTE AUTO 0.4 K/mm3 (0.0-0.8); MONOCYTES PERCENT AUTO 5.7 % (0.0-8.0); NEUTROPHILS ABSOLUTE AUTO 5.0 K/mm3 (1.8-7.7); NEUTROPHILS PERCENT AUTO 72.4 % (41.0-71.0); NRBC ABSOLUTE 0.00 (0.00-0.02); NRBC PERCENT 0.0 % (0.0-0.2); PLATELET COUNT,PLT 411 K/mm3 (150-400); RED BLOOD CELL COUNT 5.42 M/mm3 (4.10-5.30); WHITE BLOOD CELL COUNT,WBC 6.85 K/mm3 (3.9-11.3)
[2025-10-19 09:32] LABS: APPEARANCE,URINE SLT CLOUDY (Clear); GLUCOSE,URINE NEGATIVE (Negative); OCCULT BLOOD,URINE TRACE-INTACT (Negative)
[2025-10-19 09:57] LABS: A/G RATIO 1.0 (1-2); ALANINE AMINOTRANSFERASE,ALT 30 U/L (14-59); ASPARTATE AMNIOTRANSFERASE,AST 19 U/L (15-37); BILIRUBIN TOTAL 0.6 mg/dL (0.2-1.0); BLOOD UREA NITROGEN,BUN 8 mg/dL (7-18); CARBON DIOXIDE,CO2 30 mEq/L (21-32); CHLORIDE,CL 99 mEq/L (98-107); CREATININE 0.8 mg/dL (0.55-1.02); EST CRCL DRUG DOSING (CG) 55.99 mL/min; ESTIMATED GFR 91 mL/min (>60); GLUCOSE RANDOM 93 mg/dL (70-99); POTASSIUM,K 3.2 mEq/L (3.5-5.1); PROTEIN TOTAL,TP 8.7 g/dl (6.4-8.2); SODIUM,NA 139 mEq/L (136-145); TROPONIN I HIGH SENSITIVITY 4 pg/mL (<=51)
[2025-10-19 10:02] LABS: LACTIC ACID 1.2 mmol/L (0.4-2.0)
[2025-10-19 15:26] VITALS: BP 104/82; PULSE 85
== END 2025-10-19 13:30 | disposition home or self-care (01) ==
LOC: JD.ED 07:55
DX: R31.29 Other microscopic hematuria (principal); Z79.899 Other long term (current) drug therapy
CPT/HCPCS: 36415; 71045; 71045-26; 74176; 74176-26; 76705; 76705-26; 80053; 81001; 83605; 83690; 83735; 84484; 85025; 86140; 93005; 99284